=== PATIENT | female | born 1955 | race Caucasian/White ===

== ENCOUNTER 2021-11-22 08:56 | Emergency (ER) | payer OTHER, SELFPAY ==
[2021-11-22 09:09] VITALS: BP 127/50; PULSE 81; RESP 16; TEMP 36.3; O2SAT 96
--- NOTE | 2021-11-22 09:10 | ED.FEMALEGU ---
HPI - Female Genitourinary General Chief complaint: Urogenital-Female Stated complaint: poss uti Time Seen by Provider: 11/22/21 09:10 Source: patient and RN notes reviewed History of Present Illness HPI Narrative: Patient is 66-year-old female who presents the urgent care with complaints of a possible UTI. Patient states she has had dysuria, urgency and right flank pain for the last 10 days. Denies any blood in the urine. Denies of fever, chills, nausea, vomiting. Patient denies of any history of UTIs. States that she does have a history of kidney stones. No other acute complaints. No acute distress noted. Patient read the plan of care. Some parts of this dictation were generated by voice recognition software and may contain typographical and/or grammatical inaccuracies. Related Data Allergies Allergy/AdvReac Type Severity Reaction Status Date / Time No Known Allergies Allergy Verified 11/22/21 09:27 Review of Systems Review of Systems: CONSTITUTIONAL: Denies fever, chills, or sweats. EYES: Denies visual changes, redness, or discharge. ENT: Denies rhinorrhea, congestion, sore throat, or otalgia. CARDIOVASCULAR: Denies chest pain, palpitations, or edema. RESPIRATORY: Denies cough or dyspnea. GASTROINTESTINAL: Denies abdominal pain, nausea, vomiting, or diarrhea. GENITOURINARY: Reports of dysuria, urgency and right flank pain SKIN: Denies rash or itching. MUSCULOSKELETAL: Denies back pain, joint pain, or myalgia. NEUROLOGIC: Denies headache, numbness, or weakness. All other systems reviewed are negative, except as documented in HPI. PMFSH Comments At the time of my signature, I reviewed and agree with the nursing past medical, surgical, social, and family history. There is no relevant family history pertinent to the patient complaint. Exam Narrative: GENERAL: This is a well-nourished, well-developed patient, in no apparent distress. HEAD: normocephalic, atraumatic. EYES: PERRL. Sclera clear/white. Vision is grossly intact. EARS: External ears normal, NOSE: External nose normal with no obvious nasal discharge, nares without redness, no rhinorrhea. THROAT: Mucous membranes moist NECK: Neck supple CARDIOVASCULAR: Regular rate and rhythm without murmurs, gallops, or rubs. RESPIRATORY: Clear to auscultation. Breath sounds equal bilaterally. No wheezes, rales, or rhonchi. SKIN: warm, intact with no suspicious lesions or rash, good texture and turgor. NEURO: awake, alert, and oriented to person, place and time. There were no obvious focal neurologic abnormalities. EXTREMITIES: No clubbing, cyanosis, or edema. BACK: Right CVA tenderness Course Course Level of Care: Express Care Visit Vital Signs Vital signs: Vital Signs Temperature 97.3 F L 11/22/21 09:09 Pulse Rate 81 11/22/21 09:09 Respiratory Rate 16 11/22/21 09:09 Blood Pressure 127/50 L 11/22/21 09:09 Pulse Oximetry 96 11/22/21 09:09 Temperature 97.3 F L 11/22/21 09:09 Pulse Rate 81 11/22/21 09:09 Respiratory Rate 16 11/22/21 09:09 Blood Pressure 127/50 L 11/22/21 09:09 Pulse Oximetry 96 11/22/21 09:09 Reviewed MDM - Female Genitourinary MDM Narrative Medical decision making narrative: Reviewed lab results with the patient. She is aware that urine analysis is not indicative for UTI. Advised the patient to increase her water intake and avoid sugary and caffeinated drinks. Do not drink cranberry juice. If you develop any increase in symptoms associated with severe back pain, radiation to the groin, blood in the urine, fever, nausea, vomiting?go to the emergency room. We cannot rule out kidney stone at our facility and that will need further evaluation. Follow-up with your PCP within 2 to 5 days or for worsening symptoms or failure to improve. Differential Diagnosis Differential diagnosis: Likely urinary tract infection, bacterial vaginosis, trichomoniasis, ovarian cyst, vaginitis, ruptured ovarian cyst, cystitis and dysmenorrhea
== END 2021-11-22 09:30 | disposition home or self-care (01) ==
PROVIDERS: Emergency Provider Nurse Practitioner Family; PCP Physician Assistant
DX: R30.0 Dysuria (principal); K21.9 Gastro-esophageal reflux disease without esophagitis; E11.9 Type 2 diabetes mellitus without complications; F41.9 Anxiety disorder, unspecified; F32.A Depression, unspecified; Z85.43 Personal history of malignant neoplasm of ovary; Z87.442 Personal history of urinary calculi
CPT/HCPCS: 81003; 99212; G0463

== ENCOUNTER 2022-09-26 10:30 | Outpatient (CLI) | payer MEDICARE, MEDICAID, SELFPAY ==
--- NOTE | 2022-09-26 11:10 | ECG_ITS ---
Measurements Intervals Reva Rate: 80 P: 27 OK: 139 QRS: 7 QRSD: 114 T: 93 QT: 337 QTc: 389 Interpretive Statements SINUS RHYTHM BORDERLINE ST-T WAVE ABNORMALITY- HIGH LATERAL LEADS BASELINE WANDER- I, II, AVR, AVL, AVF BORDERLINE ECG NO PREVIOUS ECG AVAILABLE FOR COMPARISON Electronically Signed On 09-26-2022 11:36:[address] DEPARTMENT DISPATCHER by Michael Trevizo D.O.
== END 2022-09-26 10:31 | disposition home or self-care (01) ==
LOC: ANHCARD 10:39
PROVIDERS: PCP Physician Assistant; Visit Provider Neurological Surgery
DX: Z01.818 Encounter for other preprocedural examination (principal); R94.31 Abnormal electrocardiogram [ECG] [EKG]
CPT/HCPCS: 93005

== ENCOUNTER 2022-10-19 10:23 | Outpatient (CLI) | payer MEDICARE, MEDICAID, SELFPAY ==
[2022-10-19 11:03] LABS: Basophils Percent Auto 0.4 % (0.2-1.2); Eosinophils Absolute Auto 0.1 K/mm3 (0-0.3); Eosinophils Percent Auto 1.3 % (0-4.4); Hematocrit 42.1 % (37.0-47.0); Hemoglobin 13.9 g/dL (12.0-15.0); Immature Granulocyte Absolute 0.04 K/mm3 (0.00-0.031); Immature Granulocyte Percent A 0.4 % (0-0.5); Lymphocytes Absolute Auto 2.02 K/mm3 (0.9-3.2); Lymphocytes Percent Auto 20.2 % (18.3-44.2); Mean Corpuscular Hemoglobin 28.5 pg (26-34); Mean Corpuscular Volume 86.3 fl (80-100); Mean Platelet Volume 8.6 fl (7.4-10.4); Monocytes Absolute Auto 0.5 K/mm3 (0.1-0.6); Monocytes Percent Auto 4.8 % (2.6-8.5); Neutrophils Absolute Auto 7.3 K/mm3 (1.3-6.7); Neutrophils Percent Auto 72.9 % (45.5-73.1); Platelet Count Result 263 k/mm3 (150-375); Red Blood Count 4.88 M/mm3 (4.2-5.4); Red Cell Distribution Width 12.7 % (11.5-14.5)
[2022-10-19 11:11] LABS: Anion Gap 8 mmol/L (8-16); Blood Urea Nitrogen 14 mg/dL (7-17); Calcium 8.9 mg/dL (8.4-10.2); Carbon Dioxide 27 mmol/L (22-30); Chloride 106 mmol/L (98-107); Estimated Glomerular Filt Rate > 60; Glucose 162 mg/dL (65-110); Potassium 4.2 mmol/L (3.4-5.0); Sodium 141 mmol/L (137-145)
[2022-10-19 11:13] LABS: INR 0.9
[2022-10-19 11:38] LABS: Appearance Urine Clear (Clear); Bilirubin Urine Negative (Negative); Blood Urine Negative (Negative); Color Urine Yellow (Yellow); Glucose Urine UA 2+ mg/dL (Negative); Ketones Urine Negative (Negative); Leukocyte Esterase Ur 1+ LEU/UL (Negative); Nitrate Urine Negative (Negative); Protein Urine Negative (Negative); Specific Grav Ur >= 1.030 (1.001-1.035); Urobilinogen Urine 0.2 mg/dL (<2.0)
[2022-10-19 11:43] LABS: Bacteria Urine Trace /hpf; Mucus Urine Rare /lpf; RBC Urine 0-2 /hpf (0-2); Squamous Epithelial Cell Urine Rare /hpf (Few)
[2022-10-19 11:45] LABS: Add Urine Microscopic? YES
== END 2022-10-19 10:24 | disposition home or self-care (01) ==
PROVIDERS: PCP Physician Assistant; Visit Provider Neurological Surgery
DX: M48.061 Spinal stenosis, lumbar region without neurogenic claudication (principal); M79.606 Pain in leg, unspecified; M54.9 Dorsalgia, unspecified; Z01.818 Encounter for other preprocedural examination
CPT/HCPCS: 36415; 80048; 81001; 85025; 85610; 85730; 86850; 86900; 86901

== ENCOUNTER 2022-10-26 00:32 | Day surgery (SDC) | payer MEDICARE, MEDICAID, SELFPAY ==
[2022-10-17 11:05] VITALS: BMI 24.1
--- NOTE | 2022-10-17 11:36 | PC.NURSE ---
Report to the Outpatient Waiting Room, entrance under the green pavilion located off [facility], at time __11:00AM on date __10/26/22 . Planned Procedure Time: __1:00PM . Time changes happen often and if your time is changed the preop area will call you the afternoon before. - You and your visitor will be asked to self-screen and do not enter if you have any COVID symptoms. - Only one visitor is requested with a max of two and NO children visitors are allowed at this time. - The patient visitor may be requested to leave or wait in car when not with patient due to distancing restrictions. - A mask is optional within the hospital. Patients may have clear liquids (water, carbonated beverages, clear teas, apple juice) until 3 hours prior to surgery with a maximum of 20 ounces. - No food from midnight until time of surgery Take the following medications with a SIP of water the morning of surgery: __ALBUTEROL INHALER NEEDED, BUSPIRONE,FLONASE NASAL SPRAY NEEDED, HYDROCODONE NEEDED, LAMOTRIGINE, VENLAFAXINE Medications to discontinue per physician __HOLD ALL VITAMINS/SUPPLEMENTS 3 DAYS PRE-OP Date to take last dose___10/22/22 Please no make-up, nail mongolian, hairspray, perfume, deodorant, or body powder the day of surgery. No jewelry (including any body piercings) or valuables the day of surgery, leave them at home. Please take a shower or bath the night before, or the morning of, surgery with an antibacterial soap. Wear comfortable, loose fitting clothing. Children are encouraged to wear pajamas. - Jewelry must be removed prior to entering the operating room. Rings and piercings that are not removed may be cut off. - The hospital will not accept responsibility for valuables. - Please leave all valuables, including medications, at home the day of surgery. If you are going home after surgery, a licensed auto driver must drive you home. - NO public transportation without another adult if you receive anesthesia. - We recommend that an adult stay with you for 24 hours following discharge. - We also recommend that you do not drive, make important decision, drink alcoholic beverages, or take any drugs that were not prescribed by your health care provider for at least 24 hours after your discharge time. Follow any additional instructions given to you from your surgeon. If you or anyone in your household have experienced Covid symptoms in the past week, please notify your surgeon or the nurse liaison at the phone number below for possible testing. Telephone instructions given to _PATIENT and asked if any additional questions and then verbalized understanding. Patient advised to call surgeon office or pre surgery nurse liaison [phone] if any additional questions.
--- NOTE | 2022-10-25 11:33 | WPDANESEPPF ---
Anes - Initial Pre Proc Eval Procedure: Operation Date: 10/26/22 13:00 Proposed Procedures p Left L4-5 Far Lateral Foraminotomy - Wilmer Garcia MD Date/Time: 10/25/22 11:33 Surgeon: Wilmer Garcia MD Pre Op Diagnosis: Lt L4-5 Foraminal Stenosis Patient Data Age: 66 Gender: F Height: 1.7 m Weight: 70 kg Allergies Allergy/AdvReac Type Severity Reaction Status Date / Time amoxicillin Allergy Intermediate Hives Verified 10/17/22 10:50 Home Medications Medication Instructions Recorded Confirmed Type atorvastatin 40 mg tablet 40 mg PO DAILY 11/22/21 10/17/22 History buspirone 15 mg tablet 15 mg PO BID 11/22/21 10/17/22 History calcium carbonate 600 mg-vitamin 1 tablet PO DAILY 11/22/21 10/17/22 History D3 10 mcg (400 unit) tablet (Calcium with Vitamin D) denosumab 60 mg/mL subcutaneous 60 mg subcut [id number] 11/22/21 10/17/22 History syringe ergocalciferol (vitamin D2) 1,250 1,250 mcg PO WEEKLY 11/22/21 10/17/22 History mcg (50,000 unit) capsule fluticasone propionate 50 1 spray intranasal BID PRN Nasal 11/22/21 10/17/22 History mcg/actuation nasal Congestion spray,suspension glipizide 5 mg tablet 5 mg PO BID 11/22/21 10/17/22 History hydrocodone 7.5 mg-acetaminophen 1 tablet PO Q6H PRN Pain 11/22/21 10/17/22 History 325 mg tablet lamotrigine 100 mg tablet 100 mg PO QAM 11/22/21 10/17/22 History liraglutide 0.6 mg/0.1 mL (18 mg/3 1.2 mg subcut QAM 11/22/21 10/17/22 History mL) subcutaneous pen injector (Victoza 2-Nick) metformin 500 mg tablet,extended 500 mg PO BID 11/22/21 10/17/22 History release 24 hr naloxone 4 mg/actuation nasal spray 1 spray intranasal Q3M PRN Opioid 11/22/21 10/17/22 History Overdose omeprazole 40 mg capsule,delayed 40 mg PO BID 11/22/21 10/17/22 History release promethazine 12.5 mg tablet 12.5 mg PO Q6H PRN Nausea 11/22/21 10/17/22 History venlafaxine 100 mg tablet 100 mg PO QAM 11/22/21 10/17/22 History zolpidem 10 mg tablet 5 mg PO DAILY PRN Insomnia 11/22/21 10/17/22 History albuterol sulfate 90 mcg/actuation 2 puff inhalation Q4-6H PRN Dyspnea 10/17/22 10/17/22 History aerosol inhaler methocarbamol 750 mg tablet 750 mg PO QID PRN Muscle Spasm 10/17/22 10/17/22 History naproxen 500 mg tablet 500 mg PO BID PRN Pain 10/17/22 10/17/22 History Patient hx anesthesia problems: none Family hx anesthesia problems: none Results Review: All pre-operative results and documents have been reviewed as part of the pre-operative evaluation. [facility] Past Medical History Medical History (Updated 10/25/22 @ 11:33 by Master Bernal DO) Acute anxiety Chronic, continuous use of opioids Diabetes GERD (gastroesophageal reflux disease) Hyperlipidemia Osteoporosis Surgical History Surgical History Previous back surgery Family History Family History Father Alcoholism Depression Heart disease Mother Cancer Depression Sibling Heart disease Grandparent Heart disease Social History Social History Smoking packs per day: 1 Smoking cigarettes per day: 20.0 Years smoked: 50 Smoking pack-years: 50.00 Smoking status: Current some day smoker Tobacco type: cigarettes Additional smoking assessment comments: TAPERING OFF, SMOKED 2 CIG YESTERDAY Alcohol intake: never Substance use: never Living arrangements: alone Spiritual care concerns: No Anes - Eval Final PreProcedure Day of Procedure 10/25/22 11:33 Patient weight: normal Heart: regular rate and rhythm Lungs: clear to auscultation and normal air movement Airway: Mallampati scale class II Neurological: alert and oriented Last oral intake: >/= 8 hours ASA classification: III Emergent: no Anesthetic plan: proceed Anesthesia type and monitoring: general ETT and standard monitoring R
[2022-10-26] VITALS (9 sets, daily range): BP systolic 110–147; BP diastolic 49–91; PULSE 66–82; RESP 12–20; TEMP 36.3–36.7; O2SAT 92–100
--- NOTE | ~2022-10-26 | XR_ITS ---
XR fluoroscopy no charge Lumbar foraminotomy procedure TECHNIQUE: Fluoroscopy used during lumbar foraminotomy procedure performed by DrDavid [Wilmer Garcia MD] on 10/26/2022. 2 seconds of fluoroscopy time with 1 images captured. ] FINDINGS: Correlate with procedure note. IMPRESSION: Fluoroscopy used during lumbar foraminotomy procedure. Please refer to procedural details . Reviewed, dictated and finalized at location A. R DESK CALLER IMPRESSION: Fluoroscopy used during lumbar foraminotomy procedure. Please refer to procedural details.
[2022-10-26] MEDS: LACTATED RINGERS 1,000 ML 30 ML IV CONT ×2 (08:00→11:26)
[2022-10-26 08:09] LABS: Glucose Point of Care 168 mg/dl (65-105)
[2022-10-26] MEDS: fentaNYL CITRATE INJ (*CRX) 100 MCG/2 ML VIAL 25 MCG IV PUSH ×9 (09:11→13:15)
--- NOTE | 2022-10-26 09:52 | WPDHPUPDATE1 ---
History and Physical Update Update Date/Time: 10/26/22 09:52 History and Physical has been reviewed, including an updated exam of the patient. There are NO changes in the patient's condition. Risks, benefits, and alternatives have been discussed and questions answered. Patient agrees to proceed with procedure.
--- NOTE | 2022-10-26 09:53 | PM.IMHP ---
H&P: HPI History of Present Illness Date/Time: 10/26/22 09:53 Chief Complaint: Back and leg pain Narrative: Mary Ann is a 58-year-old female with a left L4 radiculopathy related to L4-5 foraminal stenosis and potential disc herniation presents for decompression of foramen on the left. She has not changed appreciably since we last saw her. She is not having bowel or bladder difficulty. She does not have specific muscle group weakness. She has occasional dermatomal numbness. Review of Systems Review of Systems: Patient denies shortness of breath, cough, fever, chills, nausea, vomiting, chest pain, weight loss, weight gain, dysuria she has back and pain as above. Review systems is otherwise negative on 12 systems except as noted elsewhere. [facility] Past Medical History Medical History Acute anxiety Chronic, continuous use of opioids Diabetes GERD (gastroesophageal reflux disease) Hyperlipidemia Osteoporosis Surgical History Surgical History Previous back surgery Family History Family History Father Alcoholism Depression Heart disease Mother Cancer Depression Sibling Heart disease Grandparent Heart disease Social History Social History Smoking packs per day: 1 Smoking cigarettes per day: 20.0 Years smoked: 50 Smoking pack-years: 50.00 Smoking status: Current some day smoker Tobacco type: cigarettes Additional smoking assessment comments: TAPERING OFF, SMOKED 2 CIG YESTERDAY Alcohol intake: never Substance use: never Living arrangements: alone Spiritual care concerns: No Meds Home Medications and Allergies Home Medications Medication Instructions Recorded Confirmed Type atorvastatin 40 mg tablet 40 mg PO DAILY 11/22/21 10/26/22 History buspirone 15 mg tablet 15 mg PO BID 11/22/21 10/26/22 History calcium carbonate 600 mg-vitamin 1 tablet PO DAILY 11/22/21 10/26/22 History D3 10 mcg (400 unit) tablet (Calcium with Vitamin D) denosumab 60 mg/mL subcutaneous 60 mg subcut [id number] 11/22/21 10/17/22 History syringe ergocalciferol (vitamin D2) 1,250 1,250 mcg PO WEEKLY 11/22/21 10/26/22 History mcg (50,000 unit) capsule fluticasone propionate 50 1 spray intranasal BID PRN Nasal 11/22/21 10/26/22 History mcg/actuation nasal Congestion spray,suspension glipizide 5 mg tablet 5 mg PO BID 11/22/21 10/26/22 History lamotrigine 100 mg tablet 100 mg PO QAM 11/22/21 10/26/22 History liraglutide 0.6 mg/0.1 mL (18 mg/3 1.2 mg subcut QAM 11/22/21 10/26/22 History mL) subcutaneous pen injector (FREECULTR 2-Nick) metformin 500 mg tablet,extended 500 mg PO BID 11/22/21 10/26/22 History release 24 hr naloxone 4 mg/actuation nasal spray 1 spray intranasal Q3M PRN Opioid 11/22/21 10/17/22 History Overdose omeprazole 40 mg capsule,delayed 40 mg PO BID 11/22/21 10/26/22 History release promethazine 12.5 mg tablet 12.5 mg PO Q6H PRN Nausea 11/22/21 10/26/22 History venlafaxine 100 mg tablet 100 mg PO QAM 11/22/21 10/26/22 History zolpidem 10 mg tablet 5 mg PO DAILY PRN Insomnia 11/22/21 10/26/22 History albuterol sulfate 90 mcg/actuation 2 puff inhalation Q4-6H PRN Dyspnea 10/17/22 10/26/22 History aerosol inhaler methocarbamol 750 mg tablet 750 mg PO QID PRN Muscle Spasm 10/17/22 10/17/22 History naproxen 500 mg tablet 500 mg PO BID PRN Pain 10/17/22 10/26/22 History hydrocodone 5 mg-acetaminophen 325 1 - 2 tablet PO Q4H PRN pain #30 10/26/22 Rx mg tablet tabs Allergies Allergy/AdvReac Type Severity Reaction Status Date / Time amoxicillin Allergy Intermediate Hives Verified 10/17/22 10:50 Vital Signs Vital Signs - 24 hr 10/26/22 07:21 Temperature 97.4 F L Pulse Rate 82 Respiratory Rate 18 Blood Pressure 142/52 H Pulse Oxim
[2022-10-26] MEDS: ceFAZolin 2 GM/D5W 50 ML 2 GM/50 ML BAG IVPB (10:04)
[2022-10-26] MEDS: LIDO 1%/EPINEPHRINE/PF 1:200,000 30 ML VIAL 10 ML XX (10:49)
[2022-10-26 11:47] LABS: Glucose Point of Care 124 mg/dl (65-105)
[2022-10-26] MEDS: oxyCODONE HCL (*CRX) 5 MG TAB IR PO (13:28)
--- NOTE | 2022-11-14 20:25 | W.PM.PROC2 ---
Procedure Note - Detailed Date of Procedure 11/14/22 Pre-op Diagnosis Lt L4-5 Foraminal Stenosis Post-op Diagnosis Same Procedure Performed Left L4-5 far lateral foraminotomy and microdiscectomy Surgeon Wilmer Garcia MD Anesthesia General Indications Mary Ann is a 67-year-old female with a left L4-5 foraminal disc herniation L4 radiculopathy who presents for decompression from a far lateral approach. S is Description of Procedure patient was brought to the operating room in the supine position, was sedated, intubated and placed under general anesthesia in routine fashion. She was then turned into the prone position on a Mark frame. Area of operation on her back was examined, marked for incision, prepped and draped in routine sterile fashion. Incision was marked over the L4-L5 spinous processes in the midline. This area was injected with 0.5% lidocaine with [id number] epinephrine. Intravenous antibiotics given prior to incision. Incision was made with a 10 blade scalpel down to the lumbodorsal fascia. A subperiosteal dissection of the muscle and soft tissue away from spinous process and lamina on the left at L4-5 was performed with a subperiosteal elevator and Bovie cautery. I verifying x-rays obtained to verify the level of operation. At L4-5 on the left the Midas Ezekiel drill was used to perform a lateral resection of the pars and facet to the soft contents of the foramen were encountered. Under microscopy BLE to mid was lifted and removed piecemeal using Kerrison punches until the nerve root was identified. This was reflected superiorly. The ligament was entered using an 11 blade scalpel. An Lamar curette, curved curette and Fuentes rongeur were used to push free and removed fragments of hard and soft disc herniation from beneath the nerve. This was done until a nerve hook could be placed proximally and distally above and below the nerve root to confirm lack of compression. The wound was then copiously irrigated with bacitracin irrigation all bleeding was stopped with bipolar and Bovie cautery and Gelfoam thrombin powder. The wound was then closed in layered fashion with 2-0 Vicryl interrupted sutures in the lumbodorsal fascia and Kade's layer. 3-0 Vicryl buried interrupted sutures were placed in the dermis and the skin was closed with a running 4-0 Monocryl subcuticular stitch and dressed with Dermabond and a Telfa and Tegaderm dressing. Patient was then allowed to wake up in the operating room and was taken to the recovery room in stable condition. There were no immediate complications of this operation. All counts were reported correct at the end of the case. Blood loss was 25 cc. The patient was neurologically at her baseline postoperatively. CPT Codes: 06598 Estimated Blood Loss 25 IV Fluids 1,000 Complications None Disposition PACU [facility] Billing Surgery - Charge Forward: Surgery Billing
== END 2022-10-26 14:15 | disposition home or self-care (01) ==
PROVIDERS: PCP Physician Assistant; Visit Provider Neurological Surgery
PROC: (CPT 63005; principal; 2022-10-26 09:30)
DX: M48.061 Spinal stenosis, lumbar region without neurogenic claudication (principal); E11.9 Type 2 diabetes mellitus without complications; E78.5 Hyperlipidemia, unspecified; K21.9 Gastro-esophageal reflux disease without esophagitis; F41.9 Anxiety disorder, unspecified; M81.0 Age-related osteoporosis without current pathological fracture; Z79.84 Long term (current) use of oral hypoglycemic drugs; Z79.899 Other long term (current) drug therapy; Z79.51 Long term (current) use of inhaled steroids; Z79.891 Long term (current) use of opiate analgesic; F17.210 Nicotine dependence, cigarettes, uncomplicated
CPT/HCPCS: 63056; 36415; 80048; 81001; 82948; 85025; 85610; 85730; 86850; 86900; 86901; 93005; 99199; A9270; J0690; J1170; J2405; J2704; J3010; J7120

== ENCOUNTER 2023-10-15 12:38 | Outpatient (CLI) | payer MEDICARE, MEDICAID, SELFPAY ==
--- NOTE | ~2023-10-15 | XR_ITS ---
EXAMINATION: XR hip LT 2V w AP pelvis DATE: 10/15/2023 13:02 INDICATION: Left hip pain. TECHNIQUE: An anteroposterior view of the pelvis and 2 views of left hip were obtained. COMPARISON: None. FINDINGS: There is lumbar levocurvature and mild spondylosis. No fracture. The hip joint spaces are normal. Surgical clips overlie the abdomen and pelvis. IMPRESSION: 1. No etiology for the patient's symptoms. Reviewed, dictated and finalized at location A. OR RECEPTIONIST
== END 2023-10-15 12:39 | disposition home or self-care (01) ==
PROVIDERS: PCP Physician Assistant; Visit Provider Physician Assistant
DX: M25.552 Pain in left hip (principal)
CPT/HCPCS: 73502